=== PATIENT | male | born 1950 | race Caucasian/White ===

== ENCOUNTER 2019-04-29 05:48 | Day surgery (SDC) | payer OTHER ==
[~2019-04-29] VITALS: Ht 175.3 cm; Wt 57.6 kg
[~2019-04-29 05:48] MED LIST: ALLERGY RELIEF10 M1 PO; ASPIRIN81 M2 PO; LIPITOR40 MG PO; METFORMIN HCL500 MG PO; NORVASC5 MG PO; TIMOLOL MALEATE5 M1 OPHTHALMIC; XALATAN2.5 ML OPHTHALMIC
[2019-04-29 07:00] VITALS: BP 146/76
== END 2019-04-29 08:30 | disposition home or self-care (01) ==
LOC: OR 05:48 → TBA 05:50 → OR 08:30
DX: H02.421 Myogenic ptosis of right eyelid (principal); H53.451 Other localized visual field defect, right eye; I10 Essential (primary) hypertension; E78.5 Hyperlipidemia, unspecified; E11.9 Type 2 diabetes mellitus without complications; Z98.41 Cataract extraction status, right eye; Z98.890 Other specified postprocedural states; Z79.899 Other long term (current) drug therapy; Z88.8 Allergy status to other drugs, medicaments and biological substances; Z79.82 Long term (current) use of aspirin
CPT/HCPCS: 50010; 50101; 50386; 50398; 51636; 56528; 56531; 62110; 62850; 70005